=== PATIENT | male | born 1950 | race Caucasian/White ===

== ENCOUNTER 2025-04-22 06:51 | Day surgery (SDC) | payer MEDICARE, SELFPAY | END 2025-04-22 08:53 | disposition home or self-care (01) | LOC: CATH 06:51 | PROVIDERS: ATTENDING PHYSICIAN Internal Medicine Interventional Cardiology; FAMILY PHYSICIAN Family Medicine; OTHER PHYSICIAN Internal Medicine Cardiovascular Disease | DX: I08.0 Rheumatic disorders of both mitral and aortic valves (principal); I08.8 Other rheumatic multiple valve diseases; Z86.73 Personal history of transient ischemic attack (TIA), and cerebral infarction without residual deficits; Z79.82 Long term (current) use of aspirin; Z79.899 Other long term (current) drug therapy; Z79.02 Long term (current) use of antithrombotics/antiplatelets | CPT/HCPCS: 93312; 93320; 93325 ==